=== PATIENT | female | born 1955 | race Caucasian/White ===

== ENCOUNTER 2016-12-31 05:15 | Inpatient (IN) | payer OTHER ==
[~2016-12-31] VITALS: Ht 165.1 cm; Wt 93.9 kg
[~2016-12-31 05:15] MED LIST: AMPHETAMINE SAL10 MG PO; ATIVAN0.25 MG PO; DECADRON2 MG PO; FLEXERIL10 MG PO; FOSAMAX70 MG PO; LEVAQUIN500 MG PO; LIPITOR20 MG PO; LIPITOR5 MG PO; LO-DOSE ASPIRIN81 M2 PO; LYRICA75 MG PO; MEDROL DOSEPAK4 MG PO; MULTIVITAMIN1 EAC1 PO; MULTIVITAMIN1 EAC2 PO; NAPROSYN500 MG PO; ONE DAILY FOR1 EAC1 PO; PAXIL10 MG PO; PERCOCET 5/31 TABLET PO; PRESERVISION A1 EAC2 PO; SINGULAIR10 MG PO; ULTRA-LIGHT RO1 EACH MC; VENTOLIN HFA18 GM IH
[2016-12-31 06:05] VITALS: BP 147/83
[2016-12-31 15:23] VITALS: BP 120/63
[2016-12-31 20:38] VITALS: BP 116/60
[2017-01-01 00:04] VITALS: BP 112/56
[2017-01-01 09:11] VITALS: BP 104/57
[2017-01-01 17:07] VITALS: BP 126/65
[2017-01-02] VITALS: BP 104/58
[2017-01-02 08:28] VITALS: BP 104/54
[2017-01-02 17:43] VITALS: BP 109/63
[2017-01-03 00:35] VITALS: BP 118/66
[2017-01-03 08:43] VITALS: BP 100/55
[2017-01-03 15:50] VITALS: BP 114/54
[2017-01-03] MEDS ORDERED: HYDROCODON-ACE1 EAC7 PO (17:55)
[2017-01-03] MEDS ORDERED: VENTOLIN HFA18 GM IH (17:55)
== END 2017-01-03 19:18 | disposition home or self-care (01) | DRG 460 ==
LOC: 2SOUTH 05:15 → 3EAST 05:32 → 2SOUTH 08:41 → 3EAST 14:36
DX: M43.17 Spondylolisthesis, lumbosacral region (principal); M99.73 Connective tissue and disc stenosis of intervertebral foramina of lumbar region; M51.26 Other intervertebral disc displacement, lumbar region; M47.26 Other spondylosis with radiculopathy, lumbar region; E78.00 Pure hypercholesterolemia, unspecified; M81.0 Age-related osteoporosis without current pathological fracture; G89.18 Other acute postprocedural pain; M79.651 Pain in right thigh
CPT/HCPCS: 36415; 72100; 76000; 80048; 81003; 85025; 86850; 86900; 86901; 93005; 94799; C1713; J0131; J0330; J0690; J1100; J2250; J2270; J2405; J3010; J3370; J3480; P9045; S0020